=== PATIENT | female | born 1975 | race Caucasian/White ===

== ENCOUNTER 2018-10-28 18:38 | Emergency (ER) | payer MEDICAID, OTHER ==
[2018-10-28 18:39] VITALS: BMI 30.4
--- NOTE | 2018-10-28 20:35 | ED PDOC ---
HPI: CCC, URI, Sore Throat Time Seen by Provider: 10/28/18 19:55 Chief Complaint (Nursing): ENT Problem Chief Complaint (Provider): ENT Problem History Per: Patient History/Exam Limitations: no limitations Onset/Duration Of Symptoms: Persistent (x1 week) Current Symptoms Are (Timing): Still Present Sick Contacts (Context): Family Member(s) Additional Complaint(s): 42 year old female presents to the emergency department with a complaint of a dry cough associated with throat soreness that becomes exacerbated at night for 1 week. She denies any fever or chills. Patient states her throat pain feels like "many cuts" when swallowing. Of note, patient's daughter is being evaluated in ED for similar symptoms. Past Medical History Reviewed: Historical Data, Nursing Documentation, Vital Signs Vital Signs: Last Vital Signs Temp 98.3 F 10/28/18 19:50 Pulse 58 L 10/28/18 19:50 Resp 16 10/28/18 19:50 BP 122/79 10/28/18 19:50 Pulse Ox 98 10/28/18 19:50 Primary Care Provider: FAMILY PROVIDER,NO - Medical History PMH: No Chronic Diseases - Family History Family History: States: Unknown Family Hx - Immunization History Hx Tetanus Toxoid Vaccination: No Hx Influenza Vaccination: No Hx Pneumococcal Vaccination: No - Home Medications Home Medications: Ambulatory Orders Medication Instructions Recorded Albuterol HFA [Ventolin HFA 90 1 puff IH Q6 #1 inhaler 06/19/16 mcg/actuation (8 g)] Benzonatate [Tessalon Perle] 100 mg PO TID #14 capsule 06/19/16 Prednisone [Deltasone] 20 mg PO DAILY #3 tablet 06/19/16 Promethazine/Dextromethorphan 5 ml PO Q6H PRN #100 ml 10/28/18 [Promethazine-Dm Syrup] - Allergies Allergies/Adverse Reactions: Allergies Allergy/AdvReac Type Severity Reaction Status Date / Time No Known Allergies Allergy Verified 10/28/18 19:48 Review of Systems ROS Statement: Except As Marked, All Systems Reviewed And Found Negative Constitutional: Negative for: Fever, Chills ENT: Positive for: Throat Pain Respiratory: Positive for: Cough (dry) Physical Exam - Reviewed Nursing Documentation Reviewed: Yes Vital Signs Reviewed: Yes - Physical Exam Appears: Positive for: No Acute Distress Head Exam: Positive for: ATRAUMATIC, NORMAL INSPECTION, NORMOCEPHALIC Skin: Positive for: Normal Color. Negative for: Rash Eye Exam: Positive for: Normal appearance ENT: Positive for: TM Is/Are (clear bilaterally; nonerythematous and nonbulging), Pharyngeal Erythema (posteriorly). Negative for: Tonsillar Exudate, Tonsillar Swelling Neck: Positive for: Normal, Supple Cardiovascular/Chest: Positive for: Regular Rate, Rhythm Respiratory: Positive for: Other (dry cough noted). Negative for: Respiratory Distress Neurological/Psych: Positive for: Awake, Alert, Normal Tone, Oriented. Negative for: Motor/Sensory Deficits - ECG O2 Sat by Pulse Oximetry: 98 (RA) Pulse Ox Interpretation: Normal Medical Decision Making Medical Decision Making: Time: 2009 --Upon provider reevaluation, patient is medically stable and requires no further treatment in the ED at this time. Patient will be discharged home with Rx for Promethazine DM. Counseling was provided and all questions were answered regarding diagnosis. There is agreement to discharge plan. Return to ED or follow up with PCP if symptoms persist or worsen. Clinical Impression: URI Scribe Attestation: Documented by Keyona Hinton, acting as a scribe for Maddie Joy APN. Provider Scribe Attestation: All medical record entries made by the Scribe were at my direction and per sonally dictated by me. I have reviewed the chart and agree that the record accurately reflects my personal performance of the history, physical exam, medical decision making, and the department course for this patient. I have also personally directed, reviewed, and agree with the discharge instructions and disposition. Disposition - Clinical Impression Clinical Impression: URI (upper respiratory infection) - Patient ED Disposition Is Patient to be Admitted: No Counseled Patient/Family Regarding: Diagnosis, Need For Followup, Rx Given - Disposition Disposition: Routine/Home Disposition Time: 20:10 Condition: GOOD Prescriptions: Promethazine/Dextromethorphan [Promethazine-Dm Syrup] 5 ml PO Q6H PRN #100 ml PRN Reason: Cough Instructions: Cough, Runny Nose, and the Common Cold (DC) Forms: [employer] (Bhutanese) Print Language: GUINEAN - JESUS MANUEL Present On Arrival: None
[2018-10-28 21:12] VITALS: BP 118/73; PULSE 60; RESP 17; TEMP 98.7
[2018-10-28 21:39] VITALS: O2SAT 98
== END 2018-10-28 21:10 | disposition home or self-care (01) ==
LOC: H.ER 18:38
DX: J06.9 Acute upper respiratory infection, unspecified (principal)